=== PATIENT | female | born 1960 | race Caucasian/White ===

== ENCOUNTER 2016-03-14 10:10 | Day surgery (SDC) | payer BC ==
[~2016-03-14] VITALS: Ht 154.9 cm; Wt 64.5 kg
[2016-03-14] MEDS ORDERED: PROZAC40 MG PO (10:40)
[2016-03-14] MEDS ORDERED: PROAIR HFA8.5 GM INH (10:40)
[2016-03-14] MEDS ORDERED: MULTIPLE VITAMI1 TA1 PO (10:41)
[2016-03-14] MEDS ORDERED: VITAMIN D2000 UNIT PO (10:41)
[2016-03-14 10:48] VITALS: BP 131/73; Ht 154.9 cm; Wt 64.5 kg
--- NOTE | 2016-03-14 13:22 | NUR ---
1245-3 BANDAIDS APPLIED TO PUNCTURE SITES. PT. DRESSED IN PERSONAL CLOTHING, ABLE TO AMBULATE AT WILL IN [place]. DISCHARGE INSTRUCTIONS GIVEN. 1315-PT. ESCORTED VIA WHEELCHAIR TO PERSONAL CAR, LEFT WITH FAMILY MEMBER DRIVING.
== END 2016-03-14 13:15 | disposition home or self-care (01) ==
LOC: D.OPS 10:10
DX: M53.3 Sacrococcygeal disorders, not elsewhere classified (principal); J45.909 Unspecified asthma, uncomplicated; K21.9 Gastro-esophageal reflux disease without esophagitis; Z79.899 Other long term (current) drug therapy; Z88.1 Allergy status to other antibiotic agents

== ENCOUNTER → 2016-03-21 11:56 | Day surgery (SDC) | payer BC ==
[2016-03-14 10:48] VITALS: BMI 26.9
[~2016-03-21 11:56] MED LIST: MULTIPLE VITAMI1 TA1 PO; PROAIR HFA8.5 GM INH; PROZAC40 MG PO; VITAMIN D2000 UNIT PO
--- NOTE | 2016-03-22 13:43 | NUR ---
1230-DR PAIGE INTERVIEWS PATIENT. RELATES PAIN IS 0-1. DECISION MADE TO CANCEL PROCEDURE. 1245-PATIENT DRESSES AND LEAVES AMBULATORY.
== END | disposition home or self-care (01) ==
LOC: D.OPS 11:56
DX: M54.5 Low back pain (principal); Z01.810 Encounter for preprocedural cardiovascular examination; Z01.811 Encounter for preprocedural respiratory examination; Z01.812 Encounter for preprocedural laboratory examination; Z53.9 Procedure and treatment not carried out, unspecified reason

== ENCOUNTER 2017-04-11 23:18 | Emergency (ER) | payer BC ==
[2016-03-14 10:48] VITALS: BMI 26.9
== END 2017-04-12 02:40 | disposition home or self-care (01) ==
LOC: D.ER 23:18
DX: S92.321A Displaced fracture of second metatarsal bone, right foot, initial encounter for closed fracture (principal); W10.9XXA Fall (on) (from) unspecified stairs and steps, initial encounter; Y93.89 Activity, other specified; Y92.019 Unspecified place in single-family (private) house as the place of occurrence of the external cause; J45.909 Unspecified asthma, uncomplicated; F17.200 Nicotine dependence, unspecified, uncomplicated

== ENCOUNTER 2017-08-20 08:00 | Outpatient (CLI) | payer BC ==
[2016-03-14 10:48] VITALS: BMI 26.9
== END 2017-08-20 13:42 | disposition home or self-care (01) ==
LOC: D.MAMMO 08:00
DX: Z12.31 Encounter for screening mammogram for malignant neoplasm of breast (principal)

== ENCOUNTER → 2017-12-03 15:50 | Outpatient (CLI) | payer BC ==
[2016-03-14 10:48] VITALS: BMI 26.9
== END | disposition home or self-care (01) ==
LOC: D.RAD 11:00
DX: R05 Cough (principal)

== ENCOUNTER 2019-01-10 21:43 | Emergency (ER) | payer BC ==
[~2019-01-10] VITALS: Ht 154.9 cm; Wt 62.3 kg
[2019-01-10 21:48] VITALS: BP 111/80; Ht 154.9 cm; Wt 62.3 kg
== END 2019-01-10 22:35 | disposition home or self-care (01) ==
LOC: D.ER 21:43
DX: S01.01XA Laceration without foreign body of scalp, initial encounter (principal); W19.XXXA Unspecified fall, initial encounter; Y93.9 Activity, unspecified; Y92.89 Other specified places as the place of occurrence of the external cause; J45.909 Unspecified asthma, uncomplicated

== ENCOUNTER 2019-07-22 01:58 | Emergency (ER) | payer BC ==
[~2019-07-22] VITALS: Ht 154.9 cm; Wt 62.3 kg
[2019-07-22 02:02] VITALS: BP 114/58; Ht 154.9 cm; Wt 62.3 kg
[2019-07-22] MEDS ORDERED: STERAPRED DS 1010 MG PO (02:58)
[2019-07-22] MEDS ORDERED: ATARAX 25 MG TA25 MG PO (02:58)
[2019-07-22 03:36] LABS: BILIRUBIN NEGATIVE (NEGATIVE); GLUCOSE NEGATIVE (NEGATIVE); KETONE NEGATIVE (NEGATIVE); NITRITE NEGATIVE (NEGATIVE); SPECIFIC GRAVITY 1.025 (1.005-1.020); UROBILINOGEN NORMAL (NORMAL)
[2019-07-22 03:38] LABS: BACTERIA FEW /hpf (NEGATIVE); EPITHELIAL CELLS 0-5 /hpf (0-5); RED CELLS - URINE 0-5 /hpf (0-5)
== END 2019-07-22 03:04 | disposition home or self-care (01) ==
LOC: D.ER 01:58
PROVIDERS: Family Medicine
DX: T78.40XA Allergy, unspecified, initial encounter (principal); J45.909 Unspecified asthma, uncomplicated; R21 Rash and other nonspecific skin eruption